=== PATIENT | male | born 1950 | race Caucasian/White ===

== ENCOUNTER 2021-01-19 10:08 | Emergency (ER) | payer OTHER ==
--- NOTE | 2021-01-19 11:14 | ED Physician Documentation ---
PD HPI UPPER EXT INJURY - Stated complaint Stated Complaint: RT SHOULDER/ARM PX - Chief complaint Chief Complaint: Ext Problem - History obtained from History obtained from: Patient - History of Present Illness Location: Right, Shoulder, Wrist Type of injury: Other (he had been doing repetitive lifting and reaching due to moving and had onset of shoulder pain following days. No direct impact. No abrupt onset. Pain shoulder increased for several days. He had modified a sling with using wrap around wrist and then up over neck/other shoulder. pain wrist.). No: Fall, Twist Where injury occurred: Home Timing - onset: How many weeks ago (has had pain present and increasing for a week or so.) Timing - duration: Weeks (1) Timing - details: Gradual onset, Still present Worsened by: Moving (ROM hurts for shoulder so guarding ROM. He does have ROM of it, but said it was "frozen" due to limited ROM causing pain. Thumb and radial wrist hurts with ROM as well the past couple days. No edema in arm/hand generally.). No: Palpating (not having tender area of the shoulder. The base of thumb is tender though.) Associated symptoms: Swelling (base of right thumb and the thumb too. Not other fingers.). No: Weakness, Numbness Similar symptoms before: Has not had sx before Recently seen: Not recently seen Review of Systems Constitutional: denies: Fever, Chills Nose: denies: Rhinorrhea / runny nose, Congestion Throat: denies: Sore throat Respiratory: denies: Cough Skin: denies: Rash, Lesions Neurologic: denies: Focal weakness, Numbness PD PAST MEDICAL HISTORY - Past Medical History Past Medical History: Yes Cardiovascular: Hypertension, High cholesterol Endocrine/Autoimmune: Type 2 diabetes GI: Cirrhosis, Other HEENT: Glaucoma Other Past Medical History: liver cancer - Past Surgical History Past Surgical History: No - Present Medications Home Medications: Ambulatory Orders Medication Instructions Recorded Confirmed Naproxen [EC-Naproxen] 500 mg PO BID #20 01/19/21 oxyCODONE [Roxicodone] 5 mg PO Q4-6H PRN #12 tablet 01/19/21 - Allergies Allergies/Adverse Reactions: Allergies Allergy/AdvReac Type Severity Reaction Status Date / Time No Known Drug Allergies Allergy Verified 01/19/21 10:33 - Social History Does the pt smoke?: No Smoking Status: Never smoker PD ED PE NORMAL - Vitals Vital signs reviewed: Yes - General General: Alert and oriented X 3, Well developed/nourished, Other (appears uncomfortable with guarding ROM of right shoulder. ) - Neck Neck: Supple, no meningeal sign, No bony TTP - Derm Derm: Normal color, Warm and dry, No rash - Extremities Extremities: Other (right shoulder with some tenderness laterally and posterior. Not tender at AC nor clavicle. No effusion of shoulder. ROM is not too bad, with flexion no pain, extension moderate pain, internal rotation good. Most pain with abduction. Passive ROM with minimal pain. RIght thumb base tender dorsally. ) - Neuro Neuro: Alert and oriented X 3, No motor deficit, No sensory deficit, Normal speech Results - Vitals Vitals: Vital Signs - 24 hr 01/19/21 01/19/21 10:30 13:32 Temperature 36.7 C 36.6 C Heart Rate 82 80 Respiratory 16 16 Rate Blood Pressure 163/90 H 150/88 H O2 Saturation 98 100 Oxygen O2 Source Room air - Rads (name of study) right shoulder xray Radiology: Prelim report reviewed (no fractures; no acute process), See rad report right wrist Radiology: Prelim report reviewed (some arthritis base of thumb. ), See rad report PD MEDICAL DECISION MAKING - ED course Complexity details: reviewed results (shoulder xray is okay. wrist xray with some arthritis base thumb. ), considered differential (shoulder seems like tendonitis abductor/ rotators. good ROM though hurts, so does not seem "frozen" at this time. Periodic sling I feel is okay for comfort and coached on ROM exercises often during the day. I think thumb area pain is from the wrist wrap portion of modified sling he had ), d/w patient Departure - Departure Disposition: 01 Home, Self Care Clinical Impression: Thumb tendonitis Shoulder tendonitis Qualifiers: Laterality: right Qualified Code(s): M77.8 - Other enthesopathies, not elsewhere classified Condition: Stable Record reviewed to determine appropriate education?: Yes Instructions: De Quervain Tenosynovitis, ED Tendinitis Rotator Cuff Follow-Up: David Jin MD [Provider Admit Priv/Credential] - Prescriptions: Naproxen [EC-Naproxen] 500 mg PO BID #20 oxyCODONE [Roxicodone] 5 mg PO Q4-6H PRN #12 tablet PRN Reason: Pain Comments: It seems like some tendinitis of the shoulder, which likely was just a repetitive use irritation. Alternatively it could be some inflammation in the joint capsule or the cartilage of it. These would be treated commonly with reduced motion and activity of the shoulder for comfort but to maintain some range of motion several times daily to reduce stiffening. Naproxen anti-inflammatory twice daily with food for the next week or so. Add pain medicine if needed. Avoid Tylenol as previously directed by your primary care and specialists regarding your liver. The thumb portion seems to be perhaps some arthritis flareup but more likely an irritation of the extensor tendon of the thumb. Use the thumb splint for protection of that until improved. Follow-up with your primary care or more appropriately orthopedics if not improved over the next week or so. My narcotic instructions I am prescribing a short course of narcotic pain medication for you. These are potentially dangerous and addictive medications that should be used carefully. These medications may constipate you. Take an iysm-jyy-osmkuiw stool softener such as docusate twice daily with plenty of water while taking these medications. If you go 24 hours without a bowel movement, take poct-yvw-wykeoof MiraLAX, per package instructions. Do not drink or drive while taking these medications. If you received narcotic or sedating medications while in the emergency department do not drive for 24 hours. Store this medication in a safe, secure place and out of reach of children. It is a violation of federal law to give or sell this medication to another person or to use in a manner other than prescribed. The ED will not refill narcotic prescriptions, including prescriptions lost or stolen. You can dispose of unwanted medications at the [facility]'s office or at several pharmacies such as [facility]. Discharge Date/Time: 01/19/21 13:32
[2021-01-19] MEDS ORDERED: IBUPROFEN 600 MG TABLET PO STA (11:57)
[2021-01-19] MEDS ORDERED: oxyCODONE 5 MG TABLET PO STA (11:58)
--- NOTE | 2021-01-19 12:33 | XRAY Report ---
PROCEDURE: Shoulder 3 View RT INDICATIONS: shoulder and wrist pain; no noted injury TECHNIQUE: 3 views of the shoulder were acquired. COMPARISON: None. FINDINGS: Bones: No fractures or dislocations. There is a mild to moderate degree of AC joint osteoarthritis. Mild glenohumeral joint space narrowing is present. No suspicious bony lesions. Visualized ribs andrew ear intact. Soft tissues: No suspicious soft tissue calcifications. IMPRESSION: AC joint and glenohumeral joint osteoarthritis, mild to moderate overall. No recent trau ma suspected. Reviewed by: Pipo Mejia MD on 01/19/2021 12:32 PM PDT Approved by: Pipo Mejia MD on 01/19/2021 12:32 PM PDT Station ID: [id number]
--- NOTE | 2021-01-19 12:35 | XRAY Report ---
PROCEDURE: Wrist 4 View RT INDICATIONS: shoulder and wrist pain TECHNIQUE: 4 views of the wrist were acquired. COMPARISON: None. FINDINGS: Bones: No fractures or dislocations. No suspicious bony lesions. Scaphoid view: No trauma to the scaphoid is found. Soft tissues: No suspicious soft tissue calcifications. There is distal scaphoid mild degenerative osteoarthritic change at the base of the trapezium, and the first metacarpal-trapezium articulation s hows moderate osteoarthritic change. At the radiocarpal joint there is mild degenerative osteoarthrit ic joint space narrowing. IMPRESSION: No acute or subacute trauma found. Mild to moderate degenerative osteoarthritis most prominent at the radiocarpal joint, the base of the first metacarpal, and also at the distal scaphoid bone. Reviewed by: Pipo Mejia MD on 01/19/2021 12:34 PM PDT Approved by: Pipo Mejia MD on 01/19/2021 12:34 PM PDT Station ID: [id number]
[2021-01-19 13:33] VITALS: BP 150/88
== END 2021-01-19 13:32 | disposition home or self-care (01) ==
LOC: ED 10:08
DX: M77.8 Other enthesopathies, not elsewhere classified (principal); I10 Essential (primary) hypertension; E11.9 Type 2 diabetes mellitus without complications
CPT/HCPCS: 73030; 73110; 99284; A9270